=== PATIENT | male | born 1965 | race Caucasian/White ===

== ENCOUNTER → 2016-09-01 | Day surgery (SDC) | payer BC ==
[~2016-09-01] VITALS: Ht 180.3 cm; Wt 176.9 kg
[~2016-09-01] MED LIST: ALL DAY ALLERGY10 M3 PO; COLCHICINE0.6 MG PO; FENOFIBRATE145 MG PO; FINASTERIDE5 MG PO; FLOMAX 0.4 MG0.4 MG PO; LASIX20 MG PO; METOPROLOL SUC100 MG PO; NEURONTIN 400400 MG PO; OMEGA 3 1,0001 EACH PO; OXYCODON-ACETA1 EAC1 PO; PROVIGIL 200 M200 MG PO; QUINAPRIL HCL40 MG PO; SERTRALINE HCL50 MG PO; TOPAMAX 100 MG100 MG PO; TRADJENTA5 MG PO; VICTOZA 1818 MG/3 ML SC; ZYLOPRIM 100 M100 MG PO
== END | disposition home or self-care (01) ==
LOC: OR 06:47
PROVIDERS: Surgery
PROC: 06LY4CC Occlusion of Hemorrhoidal Plexus with Extraluminal Device, Percutaneous Endoscopic Approach (ICD-10-PCS; principal; 2016-09-01 09:00)
DX: K64.0 First degree hemorrhoids (principal); I10 Essential (primary) hypertension; E11.9 Type 2 diabetes mellitus without complications; G89.29 Other chronic pain; E66.01 Morbid (severe) obesity due to excess calories; M19.90 Unspecified osteoarthritis, unspecified site; M54.9 Dorsalgia, unspecified; F41.9 Anxiety disorder, unspecified; Z68.43 Body mass index [BMI] 50.0-59.9, adult; Z82.49 Family history of ischemic heart disease and other diseases of the circulatory system; Z83.3 Family history of diabetes mellitus; Z88.8 Allergy status to other drugs, medicaments and biological substances; Z79.891 Long term (current) use of opiate analgesic; Z79.899 Other long term (current) drug therapy; Z96.653 Presence of artificial knee joint, bilateral; Z98.890 Other specified postprocedural states
CPT/HCPCS: 82962; J2250; J7120

== ENCOUNTER → 2020-11-04 | Outpatient (CLI) | payer OTHER | LOC: RAD 16:20 | DX: R05 Cough (principal) | CPT/HCPCS: 71046 ==

== ENCOUNTER → 2020-12-01 | Outpatient (CLI) | payer OTHER | LOC: EXRD 14:31 | DX: R07.9 Chest pain, unspecified (principal); M79.602 Pain in left arm; W55.22XA Struck by cow, initial encounter; R91.8 Other nonspecific abnormal finding of lung field | CPT/HCPCS: 71046; 73060 ==

== ENCOUNTER 2021-02-01 14:52 | Inpatient (IN) | payer OTHER ==
[~2021-02-01] VITALS: Ht 180.3 cm; Wt 149.7 kg
[~2021-02-01 14:52] MED LIST changes: -ALL DAY ALLERGY10 M3 PO; -FLOMAX 0.4 MG0.4 MG PO; -LASIX20 MG PO; -NEURONTIN 400400 MG PO; -SERTRALINE HCL50 MG PO; -TOPAMAX 100 MG100 MG PO; +ZITHROMAX250 MG PO; -ZYLOPRIM 100 M100 MG PO
[2021-02-01 16:04] LABS: HEMOGLOBIN 17.6 gm/dl (14.0-17.5); RED BLOOD COUNT 5.43 M/UL (4.20-5.50); WHITE BLOOD COUNT 8.4 K/UL (4.5-11.0)
[2021-02-01 16:39] LABS: BUN/CREATININE RATIO 22 (0-10)
[2021-02-02 05:52] LABS: HEMOGLOBIN 15.7 gm/dl (14.0-17.5)
[2021-02-02 05:55] LABS: RED BLOOD COUNT 4.88 M/UL (4.20-5.50); WHITE BLOOD COUNT 6.2 K/UL (4.5-11.0)
[2021-02-02] MEDS ORDERED: LASIX40 MG PO (07:42)
[2021-02-02] MEDS ORDERED: FLOMAX 0.4 MG0.4 MG PO (07:42)
[2021-02-02] MEDS ORDERED: TOPAMAX 100 MG100 MG PO (07:43)
[2021-02-02] MEDS ORDERED: CLARITIN10 MG PO (07:44)
[2021-02-02] MEDS ORDERED: ZYLOPRIM 300 M300 MG PO (07:45)
[2021-02-02] MEDS ORDERED: NEURONTIN600 MG PO (07:49)
[2021-02-02] MEDS ORDERED: SERTRALINE HCL100 MG PO (07:51)
[2021-02-02] MEDS ORDERED: BUSPIRONE HCL5 MG PO (11:08)
[2021-02-02] MEDS ORDERED: KLOR-CON 1010 MEQ PO (11:10)
[2021-02-02] MEDS ORDERED: HYDROCODON-ACE1 EAC6 PO (11:10)
[2021-02-02] MEDS ORDERED: NIACIN CR 500500 MG PO (11:11)
[2021-02-02] MEDS ORDERED: CRESTOR10 MG PO (11:12)
[2021-02-02] MEDS ORDERED: PINDOLOL5 MG PO (11:13)
[2021-02-02] MEDS ORDERED: DOCUSATE SODIU100 MG PO (11:27)
[2021-02-02] MEDS ORDERED: DEPO-TESTO200 MG/1 M IM (11:28)
[2021-02-02] MEDS ORDERED: ARIMIDEX 1 MG TA1 MG PO (11:28)
[2021-02-02] MEDS ORDERED: FISH OIL 1,0001 EACH PO (11:30)
[2021-02-02 19:16] LABS: BUN/CREATININE RATIO 24 (0-10)
--- NOTE | 2021-02-03 06:19 | NUR ---
CALLED TELEMETRY AT 608 TO SEE IF COULD CHANGE BOX DUE TO IT NOT MATCHING UP TO PORTABLE PULSE OX SENSOR, WAS TOLD PT HAD BEEN IN AFIB RVR, IMMEDIATELY CALLED AMADO HE ORDERED STAT EKG, CALLED RT FOR STAT EKG.
[2021-02-03 07:15] LABS: HEMOGLOBIN 16.2 gm/dl (14.0-17.5); RED BLOOD COUNT 5.02 M/UL (4.20-5.50); WHITE BLOOD COUNT 7.3 K/UL (4.5-11.0)
[2021-02-03 07:49] LABS: BUN/CREATININE RATIO 24 (0-10)
--- NOTE | 2021-02-03 17:16 | NUR ---
AT BEGINNING OF SHIFT NURSE WAS MADE AWARE BY CONSTRUCTION LINEMAN NURSE PATIENT HAD EXPERIENCED A CHANGE IN CARDIAC RYTHM. MARINE SURVEYOR WAS NOTIFIED AND STATE EKG WAS ORDERED ALONG WITH 5MG IV LOPRESSOR AND 1MG/KG LOVENOX. BOTH WERE ADMINISTERED AND PATIENT ALSO WAS HAVING ISSUES KEEPING O2 SATS UP. WAS NOTIFIED WHEN HE CAME ON DAY SHIFT AND HE ORDERED THE PATIENT TO BE PUT ON BIPAP SOON POSSIBLE. RESPIRATORY THERAPIST APPLIED BIPAP AND STAYED WITH PATIENT UNTIL A ROOM WAS AVAILABLE ON PCU. REPORT WAS CALLED AND PATIENT WITH HELP FROM RESPIRITORY THERAPIST AND IVON ALBRECHT RN WAS MOVED TO PCU.
[2021-02-04 04:38] LABS: HEMOGLOBIN 16.9 gm/dl (14.0-17.5); RED BLOOD COUNT 5.23 M/UL (4.20-5.50)
[2021-02-04 04:49] LABS: WHITE BLOOD COUNT 3.9 K/UL (4.5-11.0)
[2021-02-04 04:57] LABS: BUN/CREATININE RATIO 25 (0-10)
[2021-02-05 04:03] LABS: HEMOGLOBIN 16.8 gm/dl (14.0-17.5); RED BLOOD COUNT 5.23 M/UL (4.20-5.50)
[2021-02-05 04:41] LABS: BUN/CREATININE RATIO 33 (0-10)
[2021-02-05 05:10] LABS: WHITE BLOOD COUNT 6.9 K/UL (4.5-11.0)
[2021-02-06 02:49] LABS: HEMOGLOBIN 16.5 gm/dl (14.0-17.5); RED BLOOD COUNT 5.15 M/UL (4.20-5.50)
[2021-02-06 03:15] LABS: BUN/CREATININE RATIO 29 (0-10)
[2021-02-07 03:42] LABS: RED BLOOD COUNT 4.94 M/UL (4.20-5.50)
[2021-02-07 03:43] LABS: WHITE BLOOD COUNT 16.4 K/UL (4.5-11.0)
[2021-02-07 04:09] LABS: BUN/CREATININE RATIO 30 (0-10)
[2021-02-08 03:12] LABS: HEMOGLOBIN 16.6 gm/dl (14.0-17.5); RED BLOOD COUNT 5.1 M/UL (4.20-5.50); WHITE BLOOD COUNT 20.1 K/UL (4.5-11.0)
[2021-02-08 03:43] LABS: BUN/CREATININE RATIO 36 (0-10)
[2021-02-09 04:10] LABS: RED BLOOD COUNT 5.25 M/UL (4.20-5.50); WHITE BLOOD COUNT 21.6 K/UL (4.5-11.0)
[2021-02-09 04:34] LABS: BUN/CREATININE RATIO 43 (0-10)
--- NOTE | 2021-02-09 16:07 | NUR ---
PATIENTS ROOM AIR SATURATION IS 88%.
[2021-02-10 04:09] LABS: HEMOGLOBIN 16.8 gm/dl (14.0-17.5); RED BLOOD COUNT 5.17 M/UL (4.20-5.50); WHITE BLOOD COUNT 19.1 K/UL (4.5-11.0)
[2021-02-10 04:29] LABS: BUN/CREATININE RATIO 41 (0-10)
[2021-02-11 03:50] LABS: HEMOGLOBIN 17.4 gm/dl (14.0-17.5); RED BLOOD COUNT 5.39 M/UL (4.20-5.50); WHITE BLOOD COUNT 21.3 K/UL (4.5-11.0)
[2021-02-11 04:14] LABS: BUN/CREATININE RATIO 38 (0-10)
[2021-02-12 03:56] LABS: RED BLOOD COUNT 5.54 M/UL (4.20-5.50); WHITE BLOOD COUNT 21.4 K/UL (4.5-11.0)
[2021-02-12 04:20] LABS: BUN/CREATININE RATIO 44 (0-10)
[2021-02-12] MEDS ORDERED: LOPRESSOR 25 MG25 MG PO ×2 (10:18→10:30)
[2021-02-12] MEDS ORDERED: IPRAT-ALBUT 0.5-3 ML INH (10:23)
[2021-02-12] MEDS ORDERED: ELIQUIS 5 MG TAB5 MG PO (10:34)
[2021-02-12] MEDS ORDERED: CARDIZEM 90MG T90 MG PO (10:34)
[2021-02-12] MEDS ORDERED: ALPRAZOLAM0.5 MG PO (10:34)
[2021-02-12] MEDS ORDERED: MEDROL DOSEPAK 24 MG PO (10:38)
[2021-02-12] MEDS ORDERED: GLUCOPHAGE 500500 MG PO (10:53)
== END 2021-02-12 13:07 | disposition home or self-care (01) | DRG 871 ==
LOC: ER1 14:52 → CDU 20:24 → PROG CARE 20:24 → MED SURG 4 02-02 14:51 → PROG CARE 02-03 11:07
PROVIDERS: Internal Medicine; Physician Assistant; ADMIT Internal Medicine
PROC: XW033E5 Introduction of Remdesivir Anti-infective into Peripheral Vein, Percutaneous Approach, New Technology Group 5 (ICD-10-PCS; 2021-02-01)
PROC: 5A09457 Assistance with Respiratory Ventilation, 24-96 Consecutive Hours, Continuous Positive Airway Pressure (ICD-10-PCS; 2021-02-01)
PROC: 3E0333Z Introduction of Anti-inflammatory into Peripheral Vein, Percutaneous Approach (ICD-10-PCS; 2021-02-01)
PROC: 8E0ZXY6 Isolation (ICD-10-PCS; principal; 2021-02-02)
PROC: XW033G5 Introduction of Sarilumab into Peripheral Vein, Percutaneous Approach, New Technology Group 5 (ICD-10-PCS; 2021-02-03)
DX: A41.89 Other specified sepsis (principal); J96.01 Acute respiratory failure with hypoxia; U07.1 COVID-19; J12.82 Pneumonia due to coronavirus disease 2019; J15.9 Unspecified bacterial pneumonia; I50.31 Acute diastolic (congestive) heart failure; E87.1 Hypo-osmolality and hyponatremia; E66.2 Morbid (severe) obesity with alveolar hypoventilation; Z68.42 Body mass index [BMI] 45.0-49.9, adult; R65.20 Severe sepsis without septic shock; M54.9 Dorsalgia, unspecified; G89.29 Other chronic pain; E78.5 Hyperlipidemia, unspecified; I48.91 Unspecified atrial fibrillation; F41.9 Anxiety disorder, unspecified; M54.5 Low back pain; M10.9 Gout, unspecified; Z96.653 Presence of artificial knee joint, bilateral; E11.40 Type 2 diabetes mellitus with diabetic neuropathy, unspecified; N40.0 Benign prostatic hyperplasia without lower urinary tract symptoms; M19.90 Unspecified osteoarthritis, unspecified site; I11.0 Hypertensive heart disease with heart failure; E87.6 Hypokalemia; Z79.899 Other long term (current) drug therapy; Z99.81 Dependence on supplemental oxygen; Z82.49 Family history of ischemic heart disease and other diseases of the circulatory system; Z79.01 Long term (current) use of anticoagulants; Z98.890 Other specified postprocedural states
CPT/HCPCS: ECHO; 36415; 36600; 71045; 80048; 80053; 82550; 82553; 82728; 82803; 82962; 83605; 83615; 83735; 83874; 83880; 84100; 84132; 84439; 84443; 84484; 85025; 85027; 85379; 86140; 93005; 93306; 94640; 94660; 94664; 94760; 96374; 99285; J0456; J0696; J1100; J1650; J1940; J2060; J2270; J2405; J3480; J7030

== ENCOUNTER → 2021-02-25 | Outpatient (CLI) | payer OTHER ==
[~2021-02-25] MED LIST changes: +ALPRAZOLAM0.5 MG PO; +ARIMIDEX 1 MG TA1 MG PO; +BUSPIRONE HCL5 MG PO; +CARDIZEM 90MG T90 MG PO; +CLARITIN10 MG PO; +CRESTOR10 MG PO; +DEPO-TESTO200 MG/1 M IM; +DOCUSATE SODIU100 MG PO; +ELIQUIS 5 MG TAB5 MG PO; +FISH OIL 1,0001 EACH PO; +FLOMAX 0.4 MG0.4 MG PO; +GLUCOPHAGE 500500 MG PO; +HYDROCODON-ACE1 EAC6 PO; +IPRAT-ALBUT 0.5-3 ML INH; +KLOR-CON 1010 MEQ PO; +LASIX40 MG PO; +LOPRESSOR 25 MG25 MG PO; +MEDROL DOSEPAK 24 MG PO; +NEURONTIN600 MG PO; +NIACIN CR 500500 MG PO; +PINDOLOL5 MG PO; +SERTRALINE HCL100 MG PO; +TOPAMAX 100 MG100 MG PO; +ZYLOPRIM 300 M300 MG PO
[2021-02-25 11:18] LABS: HEMOGLOBIN 15.1 gm/dl (14.0-17.5); RED BLOOD COUNT 4.82 M/UL (4.20-5.50); WHITE BLOOD COUNT 10.5 K/UL (4.5-11.0)
[2021-02-25 11:45] LABS: BUN/CREATININE RATIO 18 (0-10)
== END ==
LOC: LAB 10:29
PROVIDERS: Internal Medicine
DX: U07.1 COVID-19 (principal)
CPT/HCPCS: 36415; 71046; 80053; 85025

== ENCOUNTER → 2021-03-20 | Outpatient (CLI) | payer OTHER | LOC: RAD 12:28 | DX: U07.1 COVID-19 (principal); J12.82 Pneumonia due to coronavirus disease 2019; R91.8 Other nonspecific abnormal finding of lung field | CPT/HCPCS: 71046 ==

== ENCOUNTER → 2021-04-01 | Outpatient (CLI) | payer OTHER | LOC: EXRD 10:53 | DX: Z86.16 Personal history of COVID-19 (principal); R91.8 Other nonspecific abnormal finding of lung field | CPT/HCPCS: 71046 ==

== ENCOUNTER 2021-06-08 10:28 | Inpatient (IN) | payer OTHER ==
[~2021-06-08] VITALS: Ht 180.3 cm; Wt 151.6 kg
[~2021-06-08 10:28] MED LIST changes: -BUSPIRONE HCL5 MG PO
[2021-06-08 11:58] LABS: RED BLOOD COUNT 4.32 M/UL (4.20-5.50); WHITE BLOOD COUNT 10.6 K/UL (4.5-11.0)
[2021-06-08 12:15] LABS: BUN/CREATININE RATIO 13 (0-10)
[2021-06-09 03:23] LABS: HEMOGLOBIN 13.1 gm/dl (14.0-17.5); RED BLOOD COUNT 4.05 M/UL (4.20-5.50); WHITE BLOOD COUNT 11.9 K/UL (4.5-11.0)
[2021-06-09 03:43] LABS: BUN/CREATININE RATIO 14 (0-10)
[2021-06-09] MEDS ORDERED: BUSPIRONE HCL15 MG PO (11:08)
[2021-06-09] MEDS ORDERED: DILTIAZEM 12HR90 MG PO (12:52)
[2021-06-09] MEDS ORDERED: HYDROXYZINE HCL25 MG PO (13:23)
[2021-06-09] MEDS ORDERED: ARIMIDEX 1 MG TA1 MG PO (13:25)
[2021-06-09] MEDS ORDERED: TESTOSTERO200 MG/11 IM (13:27)
[2021-06-09] MEDS ORDERED: VOLTAREN ARTHRI20 GM TOP (13:28)
[2021-06-09] MEDS ORDERED: MULTIPLE VITAM1 EAC1 PO (13:30)
[2021-06-09] MEDS ORDERED: TRAZODONE HCL100 MG PO (13:30)
[2021-06-10 05:32] LABS: HEMOGLOBIN 13.1 gm/dl (14.0-17.5); RED BLOOD COUNT 4.1 M/UL (4.20-5.50)
[2021-06-10 05:34] LABS: WHITE BLOOD COUNT 8.5 K/UL (4.5-11.0)
[2021-06-10 06:19] LABS: BUN/CREATININE RATIO 15 (0-10)
[2021-06-11 05:13] LABS: RED BLOOD COUNT 4.09 M/UL (4.20-5.50); WHITE BLOOD COUNT 9.1 K/UL (4.5-11.0)
--- NOTE | 2021-06-11 09:45 | NUR ---
dr. gagnon on the floor and seen patient and received instructions for patient to shower, removed packing and repack wound.
[2021-06-11] MEDS ORDERED: DALVANCE500 MG IV (10:19)
[2021-06-11] MEDS ORDERED: BACTRIM DS TAB1 EACH PO (10:52)
[2021-06-11] MEDS ORDERED: METRONIDAZOLE500 MG PO (10:52)
--- NOTE | 2021-06-11 14:01 | NUR ---
provided wound care supplies. with experience of wound care r/t patient have this episode of this condition before. patient stated he had wound before that packed. report given to home health nurse -francie
== END 2021-06-11 14:32 | disposition home health service (06) | DRG 580 ==
LOC: ER1 10:28 → CDU 22:13 → M/S 06-09 19:38
PROVIDERS: Internal Medicine; Physician Assistant; ADMIT Internal Medicine
PROC: 0W9F0ZZ Drainage of Abdominal Wall, Open Approach (ICD-10-PCS; principal; 2021-06-10)
DX: L02.211 Cutaneous abscess of abdominal wall (principal); K51.00 Ulcerative (chronic) pancolitis without complications; L03.311 Cellulitis of abdominal wall; Z20.822 Contact with and (suspected) exposure to COVID-19; I48.0 Paroxysmal atrial fibrillation; N40.0 Benign prostatic hyperplasia without lower urinary tract symptoms; G89.29 Other chronic pain; F41.9 Anxiety disorder, unspecified; M79.3 Panniculitis, unspecified; E87.6 Hypokalemia; E78.5 Hyperlipidemia, unspecified; G62.9 Polyneuropathy, unspecified; K59.00 Constipation, unspecified; F32.A Depression, unspecified; E11.9 Type 2 diabetes mellitus without complications; I10 Essential (primary) hypertension; G47.33 Obstructive sleep apnea (adult) (pediatric); E66.01 Morbid (severe) obesity due to excess calories; Z79.01 Long term (current) use of anticoagulants; Z86.16 Personal history of COVID-19; Z98.84 Bariatric surgery status; Z82.49 Family history of ischemic heart disease and other diseases of the circulatory system
CPT/HCPCS: 36415; 76705; 80048; 80202; 81001; 82962; 83605; 85025; 85652; 86140; 87040; 93005; 94660; 94760; 96374; 99284; G0378; J0696; J3370; J7030; J7070; Q0177; Q9967; U0002

== ENCOUNTER → 2021-10-01 | Outpatient (CLI) | payer OTHER ==
[~2021-10-01] MED LIST changes: +BACTRIM DS TAB1 EACH PO; +BUSPIRONE HCL15 MG PO; +DALVANCE500 MG IV; +DILTIAZEM 12HR90 MG PO; +HYDROXYZINE HCL25 MG PO; +METRONIDAZOLE500 MG PO; +MULTIPLE VITAM1 EAC1 PO; +TESTOSTERO200 MG/11 IM; +TRAZODONE HCL100 MG PO; +VOLTAREN ARTHRI20 GM TOP
== END ==
LOC: EXRD 10:07
DX: R06.02 Shortness of breath (principal)
CPT/HCPCS: 71046

== ENCOUNTER → 2021-12-16 | Outpatient (CLI) | payer OTHER | LOC: ECHO 10:16 → NM 13:00 | DX: R07.9 Chest pain, unspecified (principal); R06.02 Shortness of breath | CPT/HCPCS: ECHO; 78452; 93017; 93306; A9502; J2785 ==